=== PATIENT | male | born 1975 | race Caucasian/White ===

== ENCOUNTER 2022-06-16 05:08 | Emergency (ER) | payer OTHER ==
[2022-06-16] MEDS ORDERED: TORAdol 30 mg Injection IM ONE (05:31)
[2022-06-16] MEDS ORDERED: Norflex 60 MG/2 ML IM ONE (05:31)
[2022-06-16] MEDS ORDERED: Norflex 60 MG/2 ML ONE (05:43)
[2022-06-16] MEDS ORDERED: TORAdol 30 mg Injection ONE (05:43)
[2022-06-16 06:36] VITALS: BP 123/65; PULSE 56; O2SAT 98
--- NOTE | 2022-06-16 06:56 | ERPHSYRPT ---
- History of Present Illness Time Seen by Provider: 06/16/22 06:43 Source: patient Exam Limitations: no limitations Patient Subjective Stated Complaint: Lt arm pain, tingling Triage Nursing Assessment: Pt ambulated into ER without diff, at bedside. Pt c/o left upper arm/shoulder pain moren to the posterior back but feels tingling to his fingers at times. This has been occuring off and on for 3-4 weeks but pain was worse last night and he was unable to sleep. Radial pulse present. No edema noted to left arm. Pt is able to move his left arm and shoulder without diff. Physician History: 46 years old male presented in the ER with chief complaint of left upper extremity pain off and on for the last 2 to 3 weeks with progressive worsening. Patient reports off-and-on tingling and numbness which moved from forearm to arm with some radiation of pain to the fingertips. Pain is more with movements of left shoulder and feels a tender spot on the left scapula. Denies any fall trauma, lifting/pushing/pulling heavy objects. No chest pain or difficulty breathing. Occurred: other (2weeks) Method of Injury: unknown Quality: sharpness Severity of Pain-Max: severe Severity of Pain-Current: moderate Extremities Pain Location: shoulder: left, arm: left, forearm: left Modifying Factors: Improves With: nothing Associated Symptoms: No chest discomfort, No chest pain Allergies/Adverse Reactions: No Known Drug Allergies Allergy (Unverified 07/24/13 17:22) Home Medications: Clonazepam 0.5 mg [Klonopin 0.5 MG] 0.5 mg PO PRN 07/24/13 [History] Hydrocodone/Acetaminophen [[place] 7.5-325 Tablet] 1 each PO PRN 07/24/13 [History] Hx Tetanus, Diphtheria Vaccination/Date Given: No Hx Influenza Vaccination/Date Given: No Hx Pneumococcal Vaccination/Date Given: No Immunizations Up to Date: No Travel Risk - International Travel Have you traveled outside of the country in past 3 weeks: No - Coronavirus Screening Are you exhibiting any of the following symptoms?: No Close contact with a COVID-19 positive Pt in past 14-21 Days: No - Vaccine Status Have you recieved a Covid-19 vaccination: No - Review of Systems Constitutional: No Symptoms Eyes: No Symptoms Ears, Nose, & Throat: No Symptoms Respiratory: No Symptoms Cardiac: No Symptoms Abdominal/Gastrointestinal: No Symptoms Musculoskeletal: Joint Pain Skin: No Symptoms Psychological: No Symptoms Endocrine: No Symptoms Immunological/Allergic: No Symptoms - Past Medical History Pertinent Past Medical History: No Neurological History: No Pertinent History ENT History: No Pertinent History Cardiac History: No Pertinent History Respiratory History: No Pertinent History Endocrine Medical History: No Pertinent History Musculoskeletal History: No Pertinent History GI Medical History: No Pertinent History History: No Pertinent History Psycho-Social History: No Pertinent History Male Reproductive Disorders: No Pertinent History - Past Surgical History Past Surgical History: Yes Neuro Surgical History: No Pertinent History Cardiac: No Pertinent History Respiratory: No Pertinent History Gastrointestinal: No Pertinent History Genitourinary: No Pertinent History Musculoskeletal: Orthopedic Surgery Male Surgical History: No Pertinent History Other Surgical History: knee draining - Social History Smoking Status: Former smoker Exposure to second hand smoke: No Drug Use: none Patient Lives Alone: No Significant Family History: no pertinent family hx - Nursing Vital Signs Nursing Vital Signs: Initial Vital Signs Temperature 97.6 F 06/16/22 05:16 Pulse Rate 75 06/16/22 05:16 Respiratory Rate 18 06/16/22 05:16 Blood Pressure 136/85 06/16/22 05:16 O2 Sat by Pulse Oximetry 99 06/16/22 05:16 Pain Scale Pain Intensity 4 - Physical Exam General Appearance: no apparent distress, alert Eyes, Ears, Nose, Throat Exam: normal ENT inspection Neck Exam: normal inspection, non-tender, supple, full range of motion Cardiovascular/Respiratory Exam: chest non-tender, normal breath sounds, regular rate/rhythm Back Exam: normal inspection, normal range of motion Shoulder Exam: normal inspection, no evidence of injury, normal ROM, bone tenderness (Mild tenderness acromioclavicular area and lower scapula) Elbow/Forearm Exam: normal inspection, non-tender, no evidence of injury, normal ROM Wrist Exam: normal inspection, non-tender, no evidence of injury Hand Exam: normal inspection, non-tender, no evidence of injury, normal ROM Neuro/Tendon Exam: normal sensation, normal motor functions, normal tendon functions Mental Status Exam: alert, oriented x 3, cooperative Skin Exam: normal color SpO2 Interpretation: normal SpO2: 98 O2 Delivery: Room Air Ordered Tests: Medication Summary Discontinued Medications Generic Name Dose Route Start Last Admin Trade Name Freq PRN Reason Stop Dose Admin Ketorolac Tromethamine 30 mg 06/16/22 05:31 06/16/22 05:44 Ketorolac Tromethamine 30 Mg/Ml Inj IM 06/16/22 05:32 30 mg STAT ONE Administration Ketorolac Tromethamine Confirm 06/16/22 05:43 Ketorolac Tromethamine 30 Mg/Ml Inj Administered 06/16/22 05:44 Dose 30 mg .ROUTE .STK-MED ONE Orphenadrine Citrate 60 mg 06/16/22 05:31 06/16/22 05:44 Orphenadrine Citrate 60 Mg/2 Ml Vial IM 06/16/22 05:32 60 mg STAT ONE Administration Orphenadrine Citrate Confirm 06/16/22 05:43 Orphenadrine Citrate 60 Mg/2 Ml Vial Administered 06/16/22 05:44 Dose 60 mg .ROUTE .STK-MED ONE - Progress Progress: improved Progress Note: 06/16/22 46-year-old is evaluated for left shoulder/arm pain with occasional tingling and numbness for the last 2 to 3 weeks. Reproducibility with movements and palpation. No chest wall pain. No difficulty breathing. No chest pain or shortness of breath otherwise. Denies any fall or trauma. Obtain x-rays which appear negative to me, official report is pending. Given symptomatic treatment, feeling better on reevaluation. I believe patient has some kind of ligamentous injury and recommended outpatient Ortho follow-up. Discussed signs symptoms of worsening needing return to ER which he seems understanding. Counseled pt/family regarding: diagnosis, need for follow-up, rad results - Departure Departure Disposition: Home Clinical Impression: Radicular pain of shoulder Condition: Stable Critical Care Time: No Referrals: ORTHO - ECHO ARANA TONGER [NON-STAFF PHY W/O PRIVILEGES] - Follow up/PCP as directed (1-2 days for reevaluation) Instructions: Shoulder Pain (DC), Overuse Injuries (DC) Additional Instructions: Exertional activities. Take pain medications as needed. Follow-up with primary care and orthopedics for reevaluation. Return to ER for any worsening. Prescriptions: Diclofenac Sodium 50 mg PO TID PRN 7 Days #20 tab PRN Reason: Pain Methocarbamol [Robaxin] 500 mg PO QID 7 Days #28 tablet
--- NOTE | 2022-06-16 08:51 | XRAY ---
Indication: Pain. No known injury. Comparison: None 3 view left shoulder demonstrates mild AC degenerative arthropathy. No other bony, articular, or soft tissue abnormalities.
== END 2022-06-16 07:03 | disposition home or self-care (01) ==
LOC: ED 05:08
DX: M25.512 Pain in left shoulder (principal); M54.10 Radiculopathy, site unspecified; R20.2 Paresthesia of skin; Z79.899 Other long term (current) drug therapy; Z28.310 Unvaccinated for COVID-19
CPT/HCPCS: 73030; 96372; 99283; J1885; J2360

== ENCOUNTER 2022-06-24 06:41 | Emergency (ER) | payer OTHER ==
[2022-06-24] MEDS ORDERED: Norflex 60 MG/2 ML IM ONE (07:43)
[2022-06-24] MEDS ORDERED: TORAdol 30 mg Injection IM ONE (07:43)
--- NOTE | 2022-06-24 08:41 | ERPHSYRPT ---
- History of Present Illness Time Seen by Provider: 06/24/22 07:43 Source: patient Exam Limitations: no limitations Patient Subjective Stated Complaint: lt shoulder, upper back and arm pain Triage Nursing Assessment: pt ambulated into ER without diff, spouse at bedside. Pt alert and oriented x4, calm and cooperative. Pt c/o left upper and lower arm pain, left shoulder pain and left scapula pain. This pain has been going on x1 week and was seen in ER last week for this, but pain is worse. Pt can't be seen in Ortho clinic until 07/01/22. Pt states, "my fingers to left hand are numb". Pt able to move his left arm without diff. Physician History: 46 years old male presented in the ER with almost 1 month history of left shoulder/shoulder blade pain with radiation to left upper extremity with off-and-on numbness and tingling, more with movements and has some restricted range of motion of left shoulder. Denies any fall or trauma. Also feels some pain in the lateral sides of neck on the left side but no midline neck pain. No weakness left upper extremity. Occurred: days ago (30) Quality: throbbing Severity of Pain-Max: severe Severity of Pain-Current: severe Extremities Pain Location: shoulder: left, arm: left, elbow: left, forearm: left Modifying Factors: Improves With: immobilization, pain medication. Worsens With: movement Associated Symptoms: neck pain Allergies/Adverse Reactions: No Known Drug Allergies Allergy (Verified 06/24/22 06:59) Hx Tetanus, Diphtheria Vaccination/Date Given: No Hx Influenza Vaccination/Date Given: No Hx Pneumococcal Vaccination/Date Given: No Travel Risk - International Travel Have you traveled outside of the country in past 3 weeks: No - Coronavirus Screening Are you exhibiting any of the following symptoms?: No Close contact with a COVID-19 positive Pt in past 14-21 Days: No - Vaccine Status Have you recieved a Covid-19 vaccination: No - Review of Systems Constitutional: No Symptoms Ears, Nose, & Throat: No Symptoms Respiratory: No Symptoms Cardiac: No Symptoms Abdominal/Gastrointestinal: No Symptoms Genitourinary Symptoms: No Symptoms Musculoskeletal: Joint Pain, Myalgias Skin: No Symptoms Neurological: No Symptoms Psychological: No Symptoms Endocrine: No Symptoms - Past Medical History Pertinent Past Medical History: Yes Neurological History: No Pertinent History ENT History: No Pertinent History Cardiac History: No Pertinent History Respiratory History: No Pertinent History Endocrine Medical History: No Pertinent History Musculoskeletal History: No Pertinent History GI Medical History: No Pertinent History History: No Pertinent History Psycho-Social History: No Pertinent History Male Reproductive Disorders: No Pertinent History - Past Surgical History Past Surgical History: Yes Neuro Surgical History: No Pertinent History Cardiac: No Pertinent History Respiratory: No Pertinent History Gastrointestinal: No Pertinent History Genitourinary: No Pertinent History Musculoskeletal: Orthopedic Surgery Male Surgical History: No Pertinent History Other Surgical History: knee draining - Social History Smoking Status: Former smoker Exposure to second hand smoke: No Drug Use: none Patient Lives Alone: No Significant Family History: no pertinent family hx - Nursing Vital Signs Nursing Vital Signs: Initial Vital Signs Temperature 98.4 F 06/24/22 06:49 Pulse Rate 84 06/24/22 06:49 Respiratory Rate 18 06/24/22 06:49 Blood Pressure 151/104 06/24/22 06:49 O2 Sat by Pulse Oximetry 98 06/24/22 06:49 Pain Scale Pain Intensity 4 - Physical Exam General Appearance: no apparent distress, alert Eyes, Ears, Nose, Throat Exam: normal ENT inspection Neck Exam: normal inspection, non-tender, supple, full range of motion, tenderness lateral (Left trapezius), No tenderness midline Cardiovascular/Respiratory Exam: chest non-tender, normal breath sounds, regular rate/rhythm Abdominal Exam: non-tender, soft, no organomegaly Shoulder Exam: normal inspection, limited ROM (Left shoulder with some soft tissue and bony tenderness. Pain is reproducible with palpation and movements, positive Neer and Miner.) Elbow/Forearm Exam: normal inspection, non-tender, no evidence of injury, normal ROM Wrist Exam: normal inspection, non-tender, no evidence of injury, normal ROM Hand Exam: normal inspection, non-tender, no evidence of injury Neuro/Tendon Exam: normal sensation, normal motor functions Mental Status Exam: alert, oriented x 3 Skin Exam: normal color SpO2 Interpretation: normal SpO2: 98 O2 Delivery: Room Air Ordered Tests: Medication Summary Discontinued Medications Generic Name Dose Route Start Last Admin Trade Name Freq PRN Reason Stop Dose Admin Ketorolac Tromethamine 30 mg 06/24/22 07:43 06/24/22 08:44 Ketorolac Tromethamine 30 Mg/Ml Inj IM 06/24/22 07:44 30 mg STAT ONE Administration Ketorolac Tromethamine Confirm 06/24/22 08:42 Ketorolac Tromethamine 30 Mg/Ml Inj Administered 06/24/22 08:43 Dose 30 mg .ROUTE .STK-MED ONE Orphenadrine Citrate 60 mg 06/24/22 07:43 06/24/22 08:45 Orphenadrine Citrate 60 Mg/2 Ml Vial IM 06/24/22 07:44 60 mg STAT ONE Administration Orphenadrine Citrate Confirm 06/24/22 08:42 Orphenadrine Citrate 60 Mg/2 Ml Vial Administered 06/24/22 08:43 Dose 60 mg .ROUTE .STK-MED ONE - Progress Progress: pain not gone completely Progress Note: 06/24/22 08:40 46-year-old is evaluated for 1 month history of left shoulder pain with radiation to the left upper full extremity with some numbness and tingling, pain is reproducible with movements and palpation in the shoulder/shoulder blade area. Has some tenderness in the lateral side of neck but no midline tenderness. No fall or trauma. Was evaluated in the ER with negative x-rays and was given NSAID and muscle relaxant along with outpatient orthopedics follow-up. Patient has not seen orthopedics yet. Pain is not well controlled with current medications. I have given him NSAIDs and muscle relaxant here for symptomatic relief. Patient has no weakness in the left upper extremity. I believe patient's symptoms are more of a impingement and would need further evaluation with Ortho. I do not believe patient has this pain secondary to cardiac cause and has reproducibility. I have called Ortho clinic and patient would be evaluated after discharge from here. I would not give him any medication and will leave him up to orthopedics for further management. Counseled pt/family regarding: diagnosis, need for follow-up - Departure Departure Disposition: Home Clinical Impression: Radicular pain of shoulder Condition: Stable Critical Care Time: No Referrals: DOCTOR,NO FAMILY [Primary Care Provider] - Follow up/PCP as directed ORTHO - ECHO ARANA NP [NON-STAFF PHY W/O PRIVILEGES] - Follow up/PCP as directed (Go to Ortho clinic now) Additional Instructions: Follow-up with orthopedic for reevaluation now. Avoid exertional work. Return to ER for worsening pain, difficulty movements, weakness, numbness etc. per
[2022-06-24] MEDS ORDERED: TORAdol 30 mg Injection ONE (08:42)
[2022-06-24] MEDS ORDERED: Norflex 60 MG/2 ML ONE (08:42)
[2022-06-24 09:01] VITALS: BP 118/68; PULSE 80
[2022-06-24 20:52] VITALS: O2SAT 98
== END 2022-06-24 09:00 | disposition home or self-care (01) ==
LOC: ED 06:41
DX: M25.512 Pain in left shoulder (principal); M54.10 Radiculopathy, site unspecified; Z28.310 Unvaccinated for COVID-19
CPT/HCPCS: 96372; 99283; J1885; J2360

== ENCOUNTER 2024-03-21 12:43 | Emergency (ER) | payer MEDICAID, OTHER ==
[2024-03-21 13:31] VITALS: TEMP 98.2
--- NOTE | 2024-03-21 14:28 | ERPHSYRPT ---
- History of Present Illness Time Seen by Provider: 03/21/24 12:58 Source: patient Exam Limitations: no limitations Patient Subjective Stated Complaint: Nosebleeds Triage Nursing Assessment: Patient ambulated back to ED and transferred self to bed. Patient A+O X3. Patient's skin pink, warm and dry. Patient complains of nosebleeds X 6 since this am. Patient states he has been having pressure behind right side of eye and head then started having nosebleeds. Patient currently denies pain or discomfort. Physician History: 48 years old healthy male presented in the ER with complaints of right-sided epistaxis 5 times since morning. Patient reports he was having some pressure in the sinuses, behind right eye and head, took Excedrin and later on started to have right-sided nasal bleed. It improved but came back. Patient does have history of epistaxis in the past. Denies any visual disturbance, no headache at present, no numbness tingling or focal weakness. No bleeding currently. Patient is advised to blow his nose and examined with no open sores noticed. Does not have any bleeding disorder. Recommended not to take Excedrin/aspirin and take Tylenol as needed for headaches if he needs to. Patient blood pressure is in 130s. Recommended outpatient ENT follow-up. Discussed signs symptoms of worsening needing return to ER which he seems understanding. Stable for discharge. Allergies/Adverse Reactions: No Known Drug Allergies Allergy (Verified 03/21/24 13:15) Home Medications: No Reportable Medications [No Reported Medications] 03/21/24 [History] Hx Tetanus, Diphtheria Vaccination/Date Given: No Hx Influenza Vaccination/Date Given: No Hx Pneumococcal Vaccination/Date Given: No Immunizations Up to Date: Yes Travel Risk - International Travel Have you traveled outside of the country in past 3 weeks: No - Emerging Infectious Disease Are you exhibiting symptoms associated with any current EIDs: No - Review of Systems Constitutional: No Symptoms Ears, Nose, & Throat: Nose Congestion Respiratory: No Symptoms Cardiac: No Symptoms Abdominal/Gastrointestinal: No Symptoms Genitourinary Symptoms: No Symptoms Musculoskeletal: No Symptoms Neurological: Headache Endocrine: No Symptoms Hematologic/Lymphatic: No Symptoms Immunological/Allergic: No Symptoms - Past Medical History Pertinent Past Medical History: Yes Neurological History: No Pertinent History ENT History: No Pertinent History Cardiac History: No Pertinent History Respiratory History: No Pertinent History Endocrine Medical History: No Pertinent History Musculoskeletal History: Osteoarthritis GI Medical History: No Pertinent History History: No Pertinent History Psycho-Social History: No Pertinent History Male Reproductive Disorders: No Pertinent History Other Medical History: NO SIGNIFICANT HX. - Past Surgical History Past Surgical History: Yes Neuro Surgical History: No Pertinent History Cardiac: No Pertinent History Respiratory: No Pertinent History Gastrointestinal: No Pertinent History Genitourinary: No Pertinent History Musculoskeletal: Orthopedic Surgery Male Surgical History: No Pertinent History Other Surgical History: knee draining Significant Family History: no pertinent family hx - Social History Smoking Status: Former smoker Exposure to second hand smoke: No Drug Use: none Patient Lives Alone: No - Social Determinants of Health Will the patient participate in the screening: Yes Do you worry about a steady place to live?: No Do you have any problems with any of the following?: No known problems In the past 12 months,have you had to go without utilities?: No Transportation Issues: No Has anyone in your support network made you feel unsafe?: No Have you or anyone in your house had to go without enough: No - Nursing Vital Signs Nursing Vital Signs: Initial Vital Signs Temperature 98.2 F 03/21/24 13:18 Pulse Rate 90 03/21/24 13:18 Respiratory Rate 20 03/21/24 13:18 Blood Pressure 163/89 03/21/24 13:18 O2 Sat by Pulse Oximetry 97 03/21/24 13:18 Pain Scale Pain Intensity 0 - Physical Exam General Appearance: no apparent distress Eye Exam: bilateral eye: normal inspection, PERRL, EOMI Ear Exam: bilateral ear: auricle normal, canal normal, TM normal Nasal Exam: No normal inspection (Nasal mucosal injection), No dried blood, No sinus tenderness Throat Exam: normal, pharynx normal Neck Exam: normal inspection, non-tender, supple, full range of motion Cardiovascular/Respiratory Exam: normal breath sounds, regular rate/rhythm Neurologic Exam: alert, oriented x 3, cooperative, consulting practice director II-XII nml as tested, normal mood/affect, nml cerebellar function, nml station & gait, sensation nml, No motor deficits Skin Exam: normal color SpO2 Interpretation: normal SpO2: 97 O2 Delivery: Room Air - Progress Progress Note: 03/21/24 14:24 48 years old healthy male presented in the ER with complaints of right-sided epistaxis 5 times since morning. Patient reports he was having some pressure in the sinuses, behind right eye and head, took Excedrin and later on started to have right-sided nasal bleed. It improved but came back. Patient does have history of epistaxis in the past. Denies any visual disturbance, no headache at present, no numbness tingling or focal weakness. No bleeding currently. Patient is advised to blow his nose and examined with no open sores noticed. Does not have any bleeding disorder. Recommended not to take Excedrin/aspirin and take Tylenol as needed for headaches if he needs to. Patient blood pressure is in 130s. Recommended outpatient ENT follow-up. Discussed signs symptoms of worsening needing return to ER which he seems understanding. Stable for discharge. Medical Desision Making - Diagnostic Testing Diagnostic test were ordered, analyzed, and reviewed by me: No - Departure Departure Disposition: Home Clinical Impression: Epistaxis Condition: Stable Critical Care Time: No Referrals: DOCTOR,NO FAMILY [Primary Care Provider] - Follow up with PCP 1 day Instructions: Nosebleeds (DC) Additional Instructions: Apply firm pressure for 5 minutes if has bleeding again. Keep it moist. Follow-up with PCP for reevaluation and may need ENT referral for further evaluation of epistaxis. Do not use Excedrin migraine/aspirin/ibuprofen or any other NSAIDs. Take Tylenol as needed. Return to ER for epistaxis, intractable headache, visual disturbance, numbness tingling or focal weakness etc.
[2024-03-21 14:42] VITALS: BP 129/72; PULSE 80; RESP 16; O2SAT 98
== END 2024-03-21 14:42 | disposition home or self-care (01) ==
LOC: ED 12:43
DX: R04.0 Epistaxis (principal)
CPT/HCPCS: 99281